=== PATIENT | female | born 1995 | race Caucasian/White ===

== ENCOUNTER → 2019-04-12 16:15 | Outpatient (CLI) | payer OTHER, SELFPAY ==
--- NOTE | 2019-04-12 16:19 | XR_ITS ---
XR shoulder LT min 2V HISTORY: Shoulder pain ITS.REASON: bursitis of left shoulder ORDERING PHYSICIAN: Danish Rendon MD PATIENT AGE: 23 years Comparison: None FINDINGS: No fracture or dislocation. No lytic or blastic change. There is normal mineralization. The joint spaces are well-preserved. No significant degenerative/arthritic changes. No erosive changes evident. IMPRESSION: Negative, no acute finding
--- NOTE | 2019-04-12 16:19 | XR_ITS ---
XR elbow LT 2V HISTORY: Posterior medial left elbow pain ITS.REASON: epicondylitis left elbow ORDERING PHYSICIAN: Danish Rendon MD PATIENT AGE: 23 years COMPARISON: None FINDINGS: BONY STRUCTURES: No fracture or dislocation. No lytic or blastic change. Normal mineralization. SOFT TISSUES: Unremarkable. No radio opaque foreign bodies. No displaced fat pad. JOINT SPACE: Well-preserved. No significant arthritic changes evident. IMPRESSION: Negative elbow.
== END ==
PROVIDERS: PCP Emergency Medicine; Visit Provider Emergency Medicine
DX: M75.52 Bursitis of left shoulder (principal); M77.00 Medial epicondylitis, unspecified elbow
CPT/HCPCS: 73030; 73070

== ENCOUNTER 2019-06-08 15:30 | Outpatient (RCR) | payer OTHER, SELFPAY ==
--- NOTE | 2019-05-12 09:05 | HMH.PTOPEV ---
PT Outpatient Evaluation Rehab PT Outpatient Evaluation Start: 05/10/19 09:29 Freq: Status: Active Protocol: Document 05/10/19 09:00 MARTINA (Rec: 05/12/19 09:05 MARTINA [id number]) Electronically Signed By Phil Gray, PT 05/10/19 09:00 Outpatient Therapy Subjective History Subjective History Pt reports insidious onset medial and posterior L elbow pain beginning while at work in March, and L shoulder anterior and posterior pain beginning while at work in January. Pt reports at the time of L UE pain onset performing heavy repeatitive push-pull activities at work full-duty. Pt reports L UE have improved since switching to light-duty, now only feels medial L elbow and posterior L SH pain. Chief Complaint Pain Symptom Type Ache,Dull Symptoms Relieved By Rest/Positioning,Heat,Ice Symptoms Aggravated By Physical Activity,Lifting Prior Functional Limitations Reaching,Lifting,Housework Current Functional Limitations Reaching,Lifting,Housework Symptom Description Intermittent Level of pain today (0-10) 0 Pain scale - at its best (0-10) 0 Pain scale - at its worst (0-10) 6 Shoulder/Elbow Eval Shoulder Objective Measurements Palpation Tenderness tenderness shoulder exam standard left Shoulder Palpation Findings Tenderness Shoulder Palpation Overall Comment 3/4 posterior jt line Posture Shoulder Posture Sitting Position (L) Rounded,(R) Rounded Shoulder Posture Standing Position (L) Rounded,(R) Rounded Scapula Posture Sitting Position (L) Protracted,(R) Protracted Scapular Posture Standing Position (L) Protracted,(R) Protracted Flexibilty Deficits Pectoralis Major Muscle Length (R) Mild Tightness,(L) Mild Tightness Shoulder ROM Bilateral Shoulder Abduction Active Range of 0-180 Motion (degrees) Shoulder Flexion Active Range of Motion 0-180 (degrees) Query Text: Shoulder External Rotation Passive Range 0-85 of Motion (degrees) Shoulder Internal Rotation Passive Range 0-85 of Motion (degrees) Shoulder MMT Left Shoulder Abduction Strength Grade 4 Good Shoulder Flexion Strength Grade 4 Good Shoulder External Rotation Strength 4 Good Grade Shoulder Internal Rotation Strength 5 Normal Grade Shoulder Special Tests impingement sign present shou
== END 2019-06-08 15:35 | disposition home or self-care (01) ==
LOC: PT 15:30
PROVIDERS: Visit Provider Orthopaedic Surgery
DX: M75.52 Bursitis of left shoulder (principal); M77.00 Medial epicondylitis, unspecified elbow
CPT/HCPCS: 97010; 97014; 97033; 97035; 97110; 97163; G0283

== ENCOUNTER 2024-05-01 10:24 | Emergency (ER) | payer OTHER, BC, SELFPAY ==
[2024-05-01] VITALS (9 sets, daily range): BP systolic 114–138; BP diastolic 70–96; PULSE 72–113; RESP 16; TEMP 36.7; O2SAT 96–100; BMI 21.7
[2024-05-01 10:59] LABS: Basophils # 0.1 K/mm3 (0-0.2); Basophils % 0.6 % (0.1-2.0); Eosinophils # 0.1 K/mm3 (0.0-0.4); Eosinophils % 0.8 % (0.1-12.0); Hematocrit 41.5 % (37.0-47.0); Hemoglobin 13.9 g/dL (12.2-16.2); Lymphocytes # 1.2 K/mm3 (0.7-4.5); Lymphocytes % 13.2 % (10-50); Mean Corpuscular HGB Conc 33.5 g/dL (31.8-35.4); Mean Corpuscular Hemoglobin 32.9 pg (27.0-31.2); Mean Corpuscular Volume 98.1 fl (81-99); Mean Platelet Volume 8.6 fl (7.4-10.4); Monocytes # 0.6 K/mm3 (0.1-1.0); Monocytes % 5.9 % (1.7-9.3); Neutrophils # 7.4 K/mm3 (1.8-7.8); Neutrophils % 79.5 % (37.0-80.0); Platelet Count 251 K/mm3 (142-424); Red Blood Count 4.23 M/mm3 (4.20-5.40); Red Cell Distribution Width 13.4 % (11.5-17.5); White Blood Count 9.3 K/mm3 (4.8-10.8)
[2024-05-01 11:10] LABS: Chloride 102 mmol/L (98-107)
[2024-05-01 11:11] LABS: Microscopic, Urine URINE MICROSCOPIC (MICROSCOPIC)
[2024-05-01 11:11] LABS: Potassium 3.8 mmoL/L (3.5-5.1); Sodium 136 mmol/L (136-145)
[2024-05-01 11:13] LABS: Alanine Aminotransferase 19 U/L (12-78); Alkaline Phosphatase 50 U/L (38-126); Aspartate Amino Transferase 26 U/L (14-36); Bilirubin,Total 0.3 mg/dl (0.2-1.3); Blood Urea Nitrogen 10 mg/dl (7-17); Creatinine Clearance Estimated 123 mL/min (50-200); Estimated Glomerular Filt Rate 100 ml/min (>60); GFR (African American) 121 ML/MIN (>60)
[2024-05-01 11:14] LABS: Albumin/Globulin Ratio 1.3 (1.1-1.8); Anion Gap 11.8 mEq/L (5-15); Calcium 9.2 mg/dl (8.4-10.2); Carbon Dioxide 26 mmol/L (22.0-30.0); Globulin 3.1 g/dL (1.3-3.2); Glucose 77 mg/dl (74-100); Total Protein,Serum 7.1 g/dl (6.3-8.2)
[2024-05-01 11:27] LABS: Appearance,Urine CLEAR (Clear); Bilirubin,Urine Negative (Negative); Blood, Urine 1+ (Negative); Color,Urine YELLOW (Yellow); Glucose,Urine (UA) Negative (Negative); Ketones,Urine Negative (Negative); Leukocyte Esterase,Urine 1+ (Negative); Nitrate,Urine Negative (Negative); Protein,Urine Negative (Negative); Specific Gravity, Urine <= 1.005 (1.005-1.030); Urobilinogen,Urine 0.2 EU/dl (0.2)
--- NOTE | 2024-05-01 11:31 | HMH.EDGENADL ---
Discharge Plan Disposition Patient Disposition: Home, Self-Care Prescriptions Prescriptions: New nitrofurantoin monohyd/m-cryst [Macrobid] 100 mg capsule 100 mg PO BID 5 Days Qty: 10 0RF Rx Instructions: must administer with a meal/food No Action ibuprofen 200 mg capsule 200 mg PO BID PRN (Reason: pain) Referrals Follow up/Referrals: Provider,Referral, MD [Primary Care Provider] - See instructions Activity Restrictions/Add. Instructions Additional Instructions/Restrictions: Macrobid twice daily for 5 days. Results today were reassuring. Normal white blood cell count, hemoglobin 13.9, platelets normal at 251. Chemistry with normal electrolytes, including sodium 136, potassium 3.8, glucose 77, normal liver function tests (AST 26, ALT 19, alkaline phosphatase 50, bilirubin 0.3) hCG quantitative measured today was 21,598. Urinalysis with blood, leukocyte Estrace, and bacteria concerning for UTI. 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 Be sure to keep this in your records because it is relevant in case you have further bleeds. RhoGAM can be effective for up to 6-week. Clinical Impressions Clinical Impression: Vaginal bleeding affecting early Subchorionic hemorrhage Qualifiers: Trimester: second trimester Qualified Code(s): O46.8X2 - Other antepartum hemorrhage, second trimester Instructions Patient Instructions: DI for Urinary Tract Infection (UTI), DI for Urinary Tract Infection in Children Discharge ED Provider: Fernandez Basilio General Adult HPI General Chief complaint: Urogenital-Female Stated complaint: 17 weeks bleeding Time Seen by Provider: 05/01/24 10:31 Mode of Arrival: Ambulatory Source of Information: Patient Limitations: No Limitations Description of Symptoms (Recalled from ER Triage Doc. 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 pt reports she had some pain during urination x1. pt reports she is 17wks . this is the pts 3rd and she has 1 living child. pt reports she had a miscarriage last year. pt reports she is Rh-. pts OB is Dr. Farris at [facility]. FHT 158 BPM History of Present Illness HPI narrative: Please note that above description of symptoms, in this electronic medical record under categorization of recalled from ER triage doctor by RN are reflective of an initial nursing assessment, however, is not reflective of my full history and physical exam that was personally taken and clarified. Consequentially, this preceding description of symptoms, which may include the patient's categorized chief complaint in the EMR, do not reflect my personal clinical impression, and the ultimate description of history of present illness and patient stated complaints should be deferred to this section of the note. Unless stated otherwise or congruent with this section of the note, additional signs, symptoms, or incongruence should be interpreted as inaccurate with my clinical impression. Related Data Home Medications Medication Instructions Recorded Confirmed ibuprofen 200 mg capsule 200 mg PO BID PRN pain 05/03/19 05/22/19 Previous Rx's Medication Instructions Recorded nitrofurantoin 100 mg PO BID 5 days #10 caps 05/01/24 monohydrate/macrocrystals 100 mg capsule (Macrobid) Allergies Allergy/AdvReac Type Severity Reaction Status Date / Time cefaclor [From CECLOR] Allergy Intermediate I-RASH Verified 05/01/24 10:50 [facility] Disclaimer: The information contained in this section may have been updated after the patient was seen, as this information can be updated by other users. Social History Smoking Status: Never smoker alcohol intake: current alcohol intake frequency: a few times a month substance use type: denies use current occupational status: employed Travel in the last 8 weeks: None household members: family housing: apartment ROS Obtained: Yes All systems reviewed & no additional complaints except as documented Physical Exam General General appearance: alert and in no apparent distress Head Head exam: atraumatic and normocephalic Eye Eye exam: Present normal appearance, PERRL and EOMI ENT ENT exam: Present mucous membranes moist Neck Neck exam: Present normal inspection, full ROM and trachea midline Respiratory Respiratory exam: Absent respiratory distress, wheezes, stridor, accessory muscle use or prolonged expiratory phase Cardiovascular Cardiovascular exam: Present normal rhythm Abdominal Exam Abdominal exam: Present soft; Absent distention, tenderness, guarding, rebound or rigidity Extremities Exam Extremities exam: Absent edema Neurological Exam Neurological exam: Present alert, oriented X3, CN II-XII intact and normal gait; Absent motor sensory deficit Skin Skin exam: Present warm and dry; Absent diaphoresis or erythema Medical Decision Making Medical Records Medical records reviewed: Yes I reviewed the patient's medical records. Dylan Inquiry Pt receiving controlled substance: No Dylan was queried for this patient: No Vital Signs: 05/01/24 10:42 05/01/24 11:00 05/01/24 11:30 Temperature 98.1 F Temperature Source Oral Pulse Rate 85 83 Pulse Rate [Left] 113 H Respiratory Rate 16 Blood Pressure 126/83 120/74 Blood Pressure [Right Arm] 138/96 H Blood Pressure Mean 97 89 Blood Pressure Mean [Right Arm] 110 Blood Pressure Source [Right Arm] Automatic Cuff Blood Pressure Position [Right Arm] Sitting 02 Sat by Pulse Oximetry 96 97 97 Oxygen Delivery Method Room Air Lab Data Lab Results 05/01/24 10:39: WBC 9.3, RBC 4.23, Hgb 13.9, Hct 41.5, MCV 98.1, MCH 32.9 H, MCHC 33.5, RDW 13.4, Plt Count 251, MPV 8.6, Neut % (Auto) 79.5, Lymph % (Auto) 13.2, [place] % (Auto) 5.9, Eos % (Auto) 0.8, Baso % (Auto) 0.6, Neut # (Auto) 7.4, Lymph # (Auto) 1.2, [place] # (Auto) 0.6, Eos # (Auto) 0.1, Baso # (Auto) 0.1, Sodium 136, Potassium 3.8, Chloride 102, Carbon Dioxide 26, Anion Gap 11.8, BUN 10, Creatinine 0.70, Estimated Creat Clear 123, Estimated GFR 100, Est GFR ( Amer) 121, Glucose 77, Calcium 9.2, Total Bilirubin 0.3, AST 26, ALT 19, Alkaline Phosphatase 50, Total Protein 7.1, Albumin 4.0, Globulin 3.1, Albumin/Globulin Ratio 1.3, HCG, Quant 10280 H 05/01/24 10:54: Blood Type Cancelled 05/01/24 10:54: Blood Type O Negative, Antibody Screen Cancelled 05/01/24 10:54: Antibody Screen Negative 05/01/24 11:07: Urine Color Yellow, Urine Appearance Clear, Urine pH 6.0, Ur Specific [place] <= 1.005, Urine Protein Negative, Urine Glucose (UA) Negative, Urine Ketones Negative, Urine Blood 1+, Urine Nitrate Negative, Urine Bilirubin Negative, Urine Urobilinogen 0.2, Ur Leukocyte Esterase 1+ A, Urine RBC Occasional, Urine WBC 3-5, Ur Squamous Epith Cells 3-5, Urine Bacteria Trace 05/01/24 10:39 05/01/24 10:39 Orders (Tests/Meds): ED MEDICATIONS Generic Name Dose Route Start Last Admin Trade Name Freq PRN Reason Stop Dose Admin Rho Immune Globulin 0 unit 05/01/24 11:33 05/01/24 13:58 Rho(D) Immune Globulin 1,500 Unit Syringe IM 05/31/24 11:32 1,500 unit NEEDED PRN Administration For Rh Pre/ scrn resu Discontinued Medications Generic Name Dose Route Start Last Admin Trade Name Freq PRN Reason Stop Dose Admin Nitrofurantoin Macrocrystals 100 mg 05/01/24 12:28 05/01/24 13:21 Nitrofurantoin 100mg Capsule PO 05/01/24 12:29 100 mg ONCE ONE Administration ORDERS Category Date Time Status Rhogam Stat BBK 05/01/24 10:54 Completed POCUS Point of Care (ER Only) Stat Exams 05/01/24 10:32 Completed CBC w/Auto Diff [Complete Blood Count Auto Diff] Stat Lab 05/01/24 10:39 Completed CMP [Comprehensive Metabolic Panel] Stat Lab 05/01/24 10:39 Completed HCG,Quantitative Stat Lab 05/01/24 10:39 Completed UA [Urinalysis and Microscopic] Stat Lab 05/01/24 11:07 Completed Urine Culture Stat Micro 05/01/24 11:07 Received Medical Decision Narrative: 28-year-old female G3, P1 with history of 1 miscarriage presenting with bleeding. 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 She is almost 16 weeks 3 days today. States that earlier today, she was urinating and noticed that there was blood in the toilet. Also blood when she wiped. Concerned that this may be coming from her vagina. States that she has not had decreased movement, no rashes of fluid. No cramping or pain. Patient stated that she is Rh-, associated bleeding is ago the emergency department for RhoGAM. Patient is taking vitamin, has had ultrasound already. History was obtained via conversation with patient. On arrival, patient hemodynamically stable, alert, oriented x4, appropriate, GCS 15, moving all extremities spontaneously, pupils equal and reactive to light. Full physical exam performed and significant for very well-appearing female no acute distress. Abdomen soft, nontender, nondistended. No overlying skin changes. No flank tenderness. Differential includes spontaneous , threatened , incomplete , abruption, subchorionic hemorrhage, UTI, nephrolithiasis, round ligament pain, appendicitis, cholecystitis, among others. Patient was given RhoGAM for symptomatic management and correction of underlying abnormalities. Bedside [id number] ultrasound with healthy gestation intrauterine with good movements and acceptable amniotic fluid index. heart rate 158 bpm. Placenta does have small amount of subchorionic hemorrhage less than 2 cm worth without active blood flow into subchorionic space. Workup independently interpreted and significant for no leukocytosis, hemoglobin 13.9, platelets normal at 251. Chemistry normal, hCG elevated at 21,598. Urinalysis with concern for UTI with bacteria, leukocyte Estrace, blood. After RhoGAM, patient resting comfortably. Because patient at baseline without signs or symptoms of clinical decompensation, deemed appropriate for discharge. Results were relayed to patient who voiced understanding and were agreeable to outpatient management and follow up. I discussed my clinical impression with patient and answered all questions. At this time, the evidence for any other entities in the differential is insufficient to warrant any further testing or ED observation. This was explained as well. Advisory was given that persistent or worsening symptoms require further evaluation. I confirmed the understanding of this discussion. Pharmaceutical Plant Operator disclaimer Much of this encounter note is an electronic stitching machine feeder or offbearer spoken language to printed text. Electronic stitching machine feeder or offbearer of the spoken language may permit errors. Although I have reviewed the note, some errors may still exist. Procedures Limited Ultrasound Indication:: Limited OB ultrasound Indication: Positive , vaginal bleeding Identified structures: -Uterus -Left adnexa -Right adnexa -Pouch of Fabian Findings: Uterus: Definitive IUP FHR: 158 Small amount of subchorionic hemorrhage Right adnexa: -Normal Left adnexa: -Normal Cul de sac: -free fluid absent Impression: IUP present with heart rate 158 Subchorionic hemorrhage, scant Otherwise unremarkable exam Images were saved to permanent archive The study was technically adequate CPT Transabdominal: 21855-08 This study was performed by me, and I personally interpreted all images/videos. Based on my clinical judgement, these images were adequate and did not necessitate further imaging. Critical Care Critical Care Time Critical Care Time: No
[2024-05-01 12:02] LABS: RBC,Urine Occasional #/hpf (0-3)
[2024-05-01 12:03] LABS: Bacteria,Urine Trace /lpf
[2024-05-01 12:30] LABS: HCG,Quantitative 21598 mIU/ml (0-5.42)
[2024-05-01] MEDS: NITROFURANTOIN 100MG CAPSULE 100 MG PO (13:21)
--- NOTE | 2024-05-01 13:22 | PC.NURSE ---
I rounded on the pt, no new complaints at this time. vss. pt is visiting with her fiance. I explained we are waiting on lab to rerun her lab work. no new needs voiced.
[2024-05-01] MEDS: RHO(D) IMMUNE GLOBULIN 1,500 UNIT SYRINGE IM (13:58)
== END 2024-05-01 14:45 | disposition home or self-care (01) ==
PROVIDERS: Emergency Provider Emergency Medicine
DX: O46.8X2 Other antepartum hemorrhage, second trimester (principal); O23.42 Unspecified infection of urinary tract in pregnancy, second trimester; B96.89 Other specified bacterial agents as the cause of diseases classified elsewhere; Z3A.17 17 weeks gestation of pregnancy; Z87.59 Personal history of other complications of pregnancy, childbirth and the puerperium
CPT/HCPCS: 80053; 81001; 84702; 85025; 87086; 96372; 99284; J2790

== ENCOUNTER 2024-07-22 16:17 | Outpatient (CLI) | payer BC, SELFPAY ==
[2024-07-22 17:03] VITALS: BMI 25.5
--- NOTE | 2024-07-22 17:03 | US_ITS ---
PROCEDURE INFORMATION: Exam: US After First Trimester, Transabdominal Exam date and time: 07/22/2024 5:04 PM Age: 29 years old Clinical indication: status abnormalities: ; Other: Bleeding; Single gestation; Third trimester (>=28 weeks 0 days); ; Additional info: Vaginal bleeding LABS AND CLINICAL REPORTS: Gestational age (Established): 29 w 1 d Estimated due date (Established): 10/06/2024 TECHNIQUE: Imaging protocol: Real-time transabdominal obstetrical ultrasound of the maternal pelvis and a second or third trimester with image documentation. COMPARISON: No relevant prior studies available. FINDINGS: Gestation: Single live intrauterine gestation. heart rate: 153 bpm. presentation and position: Placenta: Unremarkable. No subchorionic bleed. Placenta is anterior. No abruption. Amniotic fluid (Qualitative): Amniotic fluid is normal for gestational age. Amniotic fluid index: 8.4 BIOMETRY: Gestational age (AUA): 30 w 6 d Estimated due date (AUA): 09/24/2024 Estimated weight: 1540.9 g. EFW by AC, BPD, FL, HC, [place] 1985. 78 % percentile Biparietal diameter (BPD): 7.75 cm. EGA (BPD) is 31 w 1 d. 91 % percentile Head circumference (HC): 29.03 cm. EGA (HC) is 31 w 7 d. 91 % percentile Abdominal circumference (AC): 26.04 cm. EGA (AC) is 30 w 1 d. 75 % percentile Femur length (FL): 5.65 cm. EGA (FL) is 29 w 5 d. 51 % percentile HC/AC: 1.11 FL/BPD: 0.73 FL/AC: 0.22 MATERNAL: Uterus: Unremarkable. Cervix: Unremarkable. Cervix is closed. Right ovary/adnexa: Obscured by lack of adequate acoustic window. Left ovary/adnexa: Obscured by lack of adequate acoustic window. Intraperitoneal space: No intraperitoneal free fluid. IMPRESSION: Single live intrauterine gestation. PROCEDURE INFORMATION: Exam: US Biophysical Profile Without Non-Stress Test Exam date and time: 07/22/2024 5:04 PM Age: 29 years old Clinical indication: status abnormalities: ; Other: Bleeding; Single gestation; Third trimester (>=28 weeks 0 days); ; Additional info: Vaginal bleeding TECHNIQUE: Imaging protocol: US biophysical profile without non-stress testing. COMPARISON: No relevant prior studies available. FINDINGS: heart rate: 153 bpm Amniotic fluid index: ERIC is 8.43 cm. BIOPHYSICAL PROFILE: breathing (BPP): 2 /2 gross body movement (BPP): 2 /2 tone (BPP): 2 /2 Amniotic fluid (BPP): 2 /2 Biophysical profile score (BPP): 8 /8 MATERNAL ANATOMY: Cervix: Cervical length measures 3.47 cm. IMPRESSION: Biophysical profile score is 8 out of 8.
[2024-07-22 18:30] LABS: Basophils % 0.3 % (0.1-2.0); Eosinophils # 0.1 K/mm3 (0.0-0.4); Eosinophils % 0.7 % (0.1-12.0); Hematocrit 38.2 % (37.0-47.0); Hemoglobin 12.5 g/dL (12.2-16.2); Lymphocytes # 1.5 K/mm3 (0.7-4.5); Lymphocytes % 11.4 % (10-50); Mean Corpuscular HGB Conc 32.8 g/dL (31.8-35.4); Mean Corpuscular Hemoglobin 31.2 pg (27.0-31.2); Mean Platelet Volume 8.7 fl (7.4-10.4); Monocytes # 0.8 K/mm3 (0.1-1.0); Monocytes % 6.1 % (1.7-9.3); Neutrophils # 10.8 K/mm3 (1.8-7.8); Neutrophils % 81.4 % (37.0-80.0); Platelet Count 276 K/mm3 (142-424); Red Blood Count 4.02 M/mm3 (4.20-5.40); Red Cell Distribution Width 13.4 % (11.5-17.5); White Blood Count 13.2 K/mm3 (4.8-10.8)
[2024-07-22 18:48] VITALS: BP 150/82; PULSE 115; RESP 20; TEMP 36.9; O2SAT 97; BMI 25.5
[2024-07-22 18:53] LABS: Microscopic, Urine URINE MICROSCOPIC (MICROSCOPIC)
[2024-07-22 18:55] LABS: Appearance,Urine CLEAR (Clear); Bilirubin,Urine Negative (Negative); Blood, Urine 3+ (Negative); Color,Urine YELLOW (Yellow); Glucose,Urine (UA) TRACE (Negative); Ketones,Urine Negative (Negative); Leukocyte Esterase,Urine TRACE (Negative); Nitrate,Urine Negative (Negative); Protein,Urine TRACE (Negative); Specific Gravity, Urine 1.025 (1.005-1.030); Urobilinogen,Urine 0.2 EU/dl (0.2)
[2024-07-22 19:06] LABS: Barbiturates Screen,Urine Negative ng/ml (<200)
[2024-07-22 19:07] LABS: Amphetamine/Metha Screen,Urine Negative ng/ml (<1000); Bacteria,Urine 1+ /lpf; Benzodiazepines Screen,Urine Negative ng/ml (<200); RBC,Urine 20-50 #/hpf (0-3)
[2024-07-22 19:08] LABS: Cannabinoid Screen,Urine Negative ng/ml (<50)
[2024-07-22 19:09] LABS: Cocaine Screen,Urine Negative ng/ml (<300); Methadone Screen,Urine Negative ng/ml (<300)
[2024-07-22 19:10] LABS: Opiate Screen,Urine Negative ng/ml (<300); Phencyclidine Screen,Urine Negative ng/ml (<25)
[2024-07-22] MEDS: LACTATED RINGERS 1000ML 1,000 ML 999 ML IV (19:28)
[2024-07-22] MEDS: TERBUTALINE SULFATE 1MG/ML VIAL 0.25 MG SQ (19:28)
[2024-07-22] MEDS: ACETAMINOPHEN 500MG TAB 1000 MG PO (19:28)
[2024-07-22] MEDS: RHO(D) IMMUNE GLOBULIN 1,500 UNIT (300MCG) SYRINGE 300 MCG IM (21:49)
== END 2024-07-22 21:56 | disposition home or self-care (01) ==
LOC: OBOUT 16:19 → OB 16:19
PROVIDERS: Visit Provider Obstetrics & Gynecology
DX: O46.93 Antepartum hemorrhage, unspecified, third trimester (principal); Z3A.29 29 weeks gestation of pregnancy
CPT/HCPCS: 76811; 76819; 76820; 80307; 81001; 85025; 86850; 86870; G0463; J2790; J3105; J7120